=== PATIENT | female | born 1980 | race Two or more races ===

== ENCOUNTER 2021-04-24 12:20 | Emergency (ER) | payer MEDICAID, SELFPAY ==
[2021-04-24 12:37] VITALS: BP 181/95; PULSE 57; RESP 14; TEMP 36.7; O2SAT 100; BMI 18.8
--- NOTE | 2021-04-24 13:45 | ECG_ITS ---
Test Reason : ETOH Blood Pressure : / mmHG Vent. Rate : 057 BPM Atrial Rate : 057 BPM P-R Int : 110 ms QRS Dur : 076 ms QT Int : 460 ms P-R-T Axes : 061 060 063 degrees QTc Int : 447 ms Sinus bradycardia with short TN Voltage criteria for left ventricular hypertrophy Abnormal ECG When compared with ECG of 16-JUL-2009 13:07, Vent. rate has decreased BY 34 BPM T wave inversion no longer evident in Inferior leads Nonspecific T wave abnormality no longer evident in Anterior leads Referred By: Karely Valadez Electronically Signed By:PETE RAMIREZ
[2021-04-24 14:14] LABS: MANUAL DIFF FLAG NO
[2021-04-24 14:17] LABS: Basophils Percent Auto 0.2 % (0-2); Hematocrit 45.4 % (37-47); Hemoglobin 16.2 g/dl (12.0-16.0); Imm Gran Abs Auto 0.03 X10*3/uL (0.00-0.03); Imm Gran Pct Auto 0.3 % (0.0-0.4); Lymphocytes Absolute Auto 2.2 X10*3/uL (1.2-4.9); Lymphocytes Percent Auto 21.3 % (20-40); Mean Corpuscular HGB Conc 35.7 g/dl (31.0-35.0); Mean Corpuscular Hemoglobin 31.2 pg (27.0-33.0); Mean Corpuscular Volume 87.3 fL (80-98); Monocytes Absolute Auto 0.9 X10*3/uL (0.1-1.2); Monocytes Percent Auto 9.2 % (2-11); Platelet Count 349 X10*3/uL (160-400); White Blood Count 10.2 X10*3/uL (4.8-10.8)
[2021-04-24] MEDS: 0.9 % Sodium Chloride 1,000 ML 999 ML IV (14:22)
[2021-04-24 14:39] LABS: Alanine Aminotransferase 24 U/L (0-31); Albumin Level 5.1 g/dL (3.5-5.0); Alkaline Phosphatase 116 U/L (39-117); Anion Gap 15 (12-20); Aspartate Amino Transferase 20 U/L (5-31); Bilirubin Total 1.1 mg/dL (0.0-1.0); Blood Urea Nitrogen 10 mg/dL (9-16); Calcium 10.1 mg/dL (8.4-10.2); Carbon Dioxide 22 mmol/L (22-29); Chloride 105 mmol/L (96-108); Creatinine Clr Calc Pharmacy 67.1; Estimated Glomerular Filt Rate > 60; Glucose Random 121 mg/dL (60-115); Potassium 3.6 mmol/L (3.3-5.1); Sodium 138 mmol/L (135-145); Total Protein 8.2 g/dL (6.5-8.0)
[2021-04-24 14:47] LABS: Ethanol < 10 mg/dL
--- NOTE | 2021-04-24 16:01 | ED.GENADULT ---
HPI - General Adult General Chief complaint: General Medical Stated complaint: anxiety Time Seen by Provider: 04/24/21 13:32 Source: patient Mode of arrival: ambulatory Limitations: no limitations History of Present Illness HPI narrative: 40-year-old female presents for anxiety. Patient has been suicidal in the past, and feels that she will become suicidal and self-harm. Patient is hearing voices, who she calls ?field man? patient has a diagnosis of bipolar with psychosis, panic attacks, anxiety and depression. Patient has been hospitalized in the past. Patient reports she has been depressed and has not eaten for 5 days. Two days ago she felt suicidal. Patient has been dizzy, and has felt nauseous and has vomited recently. Patient is not on any psych meds, does not see a psychiatrist or counselor, does not use drugs or alcohol. Reports her mom 1 year ago. Related Data Allergies Allergy/AdvReac Type Severity Reaction Status Date / Time Penicillins [PENICILLINS] Allergy Mild RASH Unverified 05/22/20 16:55 Penicillin Allergy Unknown rash Uncoded 12/27/11 00:00 Review of Systems Review of Systems: Constitutional : No Weight loss, No Fever, No Chills, No Night Sweats,No Fatigue, No Malaise ENT/Mouth : No Hearing loss, No Ear Pain, No Nasal Congestion, NoSinus Pain, No Hoarseness, No sore throat, No Rhinorrhea, NoSwallowing Difficulty Eyes: No Eye Pain, No Swelling, No Redness, No Foreign Body, NoDischarge, No Vision Changes Cardiovascular : No Chest Pain, No SOB, No Dyspnea on Exertion, NoOrthopnea, No Edema, No Palpitations Respiratory : No Cough, No Sputum, No Wheezing, No Smoke Exposure, No Dyspnea Gastrointestinal : + Nausea, + Vomiting, No Diarrhea, NoConstipation, No abdominal Pain, No Hematochezia, No Melena Genitourinary : no irregular bleeding, No Dysuria, No UrinaryFrequency, No Hematuria, No Urinary Incontinence, No Urgency, No FlankPain, No Urinary Flow Changes, No Hesitancy Musculoskeletal : No joint pain, No Myalgias, No Joint Swelling Skin : No Skin Lesions, No rash Neuro : No Weakness, No Numbness, No Paresthesias, No Loss ofConsciousness, No Dizziness, No Headache Psych : + anxiety, + hearing voices, + fear of becoming SI, no HI Endocrine : No Polyuria, No Polydipsia, No Temperature Intolerance [facility] Social History Social History Advance Directives: Yes Advance Directives Information Provided: Yes Advance Directives on File: No Physical Exam Vital Signs: Vital Signs: Last Vital Signs Temp 98.3 F 04/24/21 17:54 Pulse 51 04/24/21 17:54 Resp 16 04/24/21 17:54 BP 192/82 H 04/24/21 17:54 Pulse Ox 99 04/24/21 17:54 Body Mass Index 18.8 Const: General: alert and awake Nutritional Appearance: malnourished and thin Orientation/consciousness: patient oriented x3 Limitations: no limitations HENMT: Head: Yes normal to inspection and Yes normocephalic Ears: hearing grossly normal bilaterally General nose exam: Normal external nose present Face and sinus: Yes normal facial exam Mouth: Normal oral and palatal mucosa present Throat: Yes posterior oropharynx normal Eyes: Sclerae: sclerae normal Pupils: Equal, round and reactive pupils present EOM: EOMs intact bilaterally Neck: Neck: Yes full ROM, Yes no lymphadenopathy, Yes no meningeal signs and Yes supple Resp: Effort & Inspection: normal respiratory effort and able to speak in complete sentences Auscultation: clear to auscultation bilaterally, no crackles, no rales, no rhonchi and no wheezes Cardio: Rate: regular rate Rhythm: regular rhythm Heart sounds: S1 normal heart sound present and S2 normal heart sound present GI: Inspection: Yes normal to inspection Palpation (GI): Soft to palpation, nontender, no guarding and not rigid Percussion: Yes normal to percussion Auscultation: normal bowel sounds Skin: General skin exam: no rashes or lesions noted Neuro: General: patient oriented x3, tone normal, moves all extremities, no meningeal signs and no focal motor deficits Cranial nerves: Yes Equal, round and reactive pupils present Psych: Appearance: disheveled Speech and movement: Clear speech present Affect: Sad affect present and Anxious affect present Attitude: cooperative Thought content: suicidality, no homicidality, Hallucination(s) present auditory and Depressive thoughts present Course Course Course Narrative: 40-year-old female presents for anxiety and auditory hallucinations, with a history of SI, concerns for her own safety. Labs show positive U tox for fentanyl marijuana. Labs otherwise unremarkable. Give fluids, Zofran. Medical Decision Making Lab Data Result diagrams: 04/24/21 14:11 04/24/21 14:11 Labs: Lab Results 04/24/21 04/24/21 04/24/21 Range/Units 14:11 14:11 14:11 WBC 10.2 (4.8-10.8) X10*3/uL RBC 5.20 (4.20-5.50) X10*6/uL Hgb 16.2 H (12.0-16.0) g/dl Hct 45.4 (37-47) % MCV 87.3 (80-98) fL MCH 31.2 (27.0-33.0) pg MCHC 35.7 H (31.0-35.0) g/dl RDW 12.0 (11.0-16.0) % Plt Count 349 (160-400) X10*3/uL MPV 9.0 L (9.4-12.3) fL Immature Gran % (Auto) 0.3 (0.0-0.4) % Neut % (Auto) 69.0 (45-73) % Lymph % (Auto) 21.3 (20-40) % Person % (Auto) 9.2 (2-11) % Eos % (Auto) 0.0 (0-4) % Baso % (Auto) 0.2 (0-2) % Lymph # (Auto) 2.2 (1.2-4.9) X10*3/uL Person # (Auto) 0.9 (0.1-1.2) X10*3/uL Eos # (Auto) 0.0 (0.0-0.4) X10*3/uL Baso # (Auto) 0.0 (0.0-0.2) X10*3/uL Abs Immat Gran (auto) 0.03 (0.00-0.03) X10*3/uL Absolute Neuts (auto) 7.0 (2.0-8.3) X10*3/uL Absolute Nucleated RBC 0.000 (0.0-0.012) X10*3/uL Nucleated RBC % (auto) 0.0 (0.0-0.2) /100WBC Sodium 138 (135-145) mmol/L Potassium 3.6 (3.3-5.1) mmol/L Chloride 105 (96-108) mmol/L Carbon Dioxide 22 (22-29) mmol/L Anion Gap 15 (12-20) BUN 10 (9-16) mg/dL Creatinine 0.82 (0.5-1.4) mg/dL Estim Creat Clear Calc 67.1 Estimated GFR > 60 Random Glucose 121 H (60-115) mg/dL Calcium 10.1 (8.4-10.2) mg/dL Total Bilirubin 1.1 H (0.0-1.0) mg/dL AST 20 (5-31) U/L ALT 24 (0-31) U/L Alkaline Phosphatase 116 (39-117) U/L Total Protein 8.2 H (6.5-8.0) g/dL Albumin 5.1 H (3.5-5.0) g/dL Urine Test (NEGATIVE) Urine Opiates Screen (Not Detect) Urine Fentanyl Screen (Not Detect) Ur Barbiturates Screen (Not Detect) Ur Phencyclidine Scrn (Not Detect) Ur Amphetamines Screen (Not Detect) U Benzodiazepines Scrn (Not Detect) Urine Cocaine Screen (Not Detect) U Marijuana (THC) Screen (Not Detect) Ethyl Alcohol < 10 mg/dL COVID-19 ([facility]) (Negative) COVID-19 Clin Com 04/24/21 04/24/21 04/24/21 Range/Units 15:59 15:59 17:01 WBC (4.8-10.8) X10*3/uL RBC (4.20-5.50) X10*6/uL Hgb (12.0-16.0) g/dl Hct (37-47) % MCV (80-98) fL MCH (27.0-33.0) pg MCHC (31.0-35.0) g/dl RDW (11.0-16.0) % Plt Count (160-400) X10*3/uL MPV (9.4-12.3) fL Immature Gran % (Auto) (0.0-0.4) % Neut % (Auto) (45-73) % Lymph % (Auto) (20-40) % Person % (Auto) (2-11) % Eos % (Auto) (0-4) % Baso % (Auto) (0-2) % Lymph # (Auto) (1.2-4.9) X10*3/uL Person # (Auto) (0.1-1.2) X10*3/uL Eos # (Auto) (0.0-0.4) X10*3/uL Baso # (Auto) (0.0-0.2) X10*3/uL Abs Immat Gran (auto) (0.00-0.03) X10*3/uL Absolute Neuts (auto) (2.0-8.3) X10*3/uL Absolute Nucleated RBC (0.0-0.012) X10*3/uL Nucleated RBC % (auto) (0.0-0.2) /100WBC Sodium (135-145) mmol/L Potassium (3.3-5.1) mmol/L Chloride (96-108) mmol/L Carbon Dioxide (22-29) mmol/L Anion Gap (12-20) BUN (9-16) mg/dL Creatinine (0.5-1.4) mg/dL Estim Creat Clear Calc Estimated GFR Random Glucose (60-115) mg/dL Calcium (8.4-10.2) mg/dL Total Bilirubin (0.0-1.0) mg/dL AST (5-31) U/L ALT (0-31) U/L Alkaline Phosphatase (39-117) U/L Total Protein (6.5-8.0) g/dL Albumin (3.5-5.0) g/dL Urine Test NEGATIVE (NEGATIVE) Urine Opiates Screen Not Detected (Not Detect) Urine Fentanyl Screen POSITIVE H (Not Detect) Ur Barbiturates Screen Not Detected (Not Detect) Ur Phencyclidine Scrn Not Detected (Not Detect) Ur Amphetamines Screen Not Detected (Not Detect) U Benzodiazepines Scrn Not Detected (Not Detect) Urine Cocaine Screen Not Detected (Not Detect) U Marijuana (THC) Screen POSITIVE H (Not Detect) Ethyl Alcohol mg/dL COVID-19 ([facility]) Negative (Negative) COVID-19 Clin Com See Note ECG Data Interpretation: EKG shows sinus bradycardia with a rate of 57. Normal axis. AR interval 110. QRS 76. QTC 447. No ST elevations or depressions, no T-wave inversions. Discharge Plan Discharge Clinical Impression: Anxiety
[2021-04-24 16:18] LABS: UPreg QC Valid YES; Urine Pregnancy NEGATIVE (NEGATIVE)
[2021-04-24 16:38] LABS: Amphetamine Screen Urine Not Detected (Not Detect); Barbiturates, Urine Not Detected (Not Detect); Benzodiazepines Screen Urine Not Detected (Not Detect); Cannabinoid Screen Urine POSITIVE (Not Detect); Cocaine Screen Urine Not Detected (Not Detect); Fentanyl, urine POSITIVE (Not Detect); Opiate Screen Urine Not Detected (Not Detect); Phencyclidine Screen Urine Not Detected (Not Detect)
--- NOTE | 2021-04-24 16:45 | PC.NURSE ---
Pt resting in the bed quietly. Fax via smart sheet sent to Crisis team/[facility] at this time.
[2021-04-24 17:01] VITALS: BP 159/85; PULSE 67; RESP 18; O2SAT 100
[2021-04-24 17:33] LABS: COVID-19 Test Negative (Negative)
[2021-04-24] MEDS: Acetaminophen 325 MG TABLET 650 MG PO (17:35)
[2021-04-24] MEDS: LORazepam 1 MG TABLET 2 MG PO (17:38)
[2021-04-24 17:54] VITALS: BP 192/82; PULSE 51; RESP 16; TEMP 36.8; O2SAT 99
--- NOTE | 2021-04-24 17:56 | PC.NURSE ---
Patient is alert and oriented x4. Patient is dressed in her own clothing, noted to be dirty with questionable hygiene. Patient reports 10/10 Depression, 10/10 Anxiety, and endorses auditory and visual hallucinations. Patient reports she hears a man's voice telling her to run out in front of traffic and kill herself. She reports she sees herself doing this as well. Patient reports she does not wish to though. In describing her depression, Liz reports it's major. She states, I don't trust myself to be alone, citing a recent event in which she woke up with self-harm cuts she didn't remember making. Patient reports She has been experiencing lack of sleep, and mind racing, for the last two years and has lost 25 lbs recently. Patient reports she had taken care of her mother for the last year of her life, before she passed two years ago. Patient reports previous medications include [place], Gabapentin, Seroquel and Ativan. Patient reports she has not had medications for two years.
--- NOTE | 2021-04-24 20:44 | PC.NURSE ---
pt was sleeping in the room, pt is now being seen by bhn in the room, visable on the monitor. skin warm and dry, pt alert and oriented.
--- NOTE | 2021-04-24 21:07 | ED.GENADULT ---
HPI - General Adult General Chief complaint: General Medical Stated complaint: anxiety Time Seen by Provider: 04/24/21 13:32 Source: patient Mode of arrival: ambulatory Limitations: no limitations Related Data Allergies Allergy/AdvReac Type Severity Reaction Status Date / Time Penicillins [PENICILLINS] Allergy Mild RASH Unverified 05/22/20 16:55 Penicillin Allergy Unknown rash Uncoded 12/27/11 00:00 PMFSH Social History Social History Advance Directives: Yes Advance Directives Information Provided: Yes Advance Directives on File: No Physical Exam Vital Signs: Vital Signs: Last Vital Signs Temp 99.1 F 04/26/21 08:28 Pulse 99 04/26/21 08:28 Resp 16 04/26/21 08:28 BP 163/108 H 04/26/21 08:28 Pulse Ox 100 04/26/21 08:28 Body Mass Index 18.8 Medical Decision Making Lab Data Result diagrams: 04/24/21 14:11 04/24/21 14:11 Labs: Lab Results 04/24/21 04/24/21 04/24/21 Range/Units 14:11 14:11 14:11 WBC 10.2 (4.8-10.8) X10*3/uL RBC 5.20 (4.20-5.50) X10*6/uL Hgb 16.2 H (12.0-16.0) g/dl Hct 45.4 (37-47) % MCV 87.3 (80-98) fL MCH 31.2 (27.0-33.0) pg MCHC 35.7 H (31.0-35.0) g/dl RDW 12.0 (11.0-16.0) % Plt Count 349 (160-400) X10*3/uL MPV 9.0 L (9.4-12.3) fL Immature Gran % (Auto) 0.3 (0.0-0.4) % Neut % (Auto) 69.0 (45-73) % Lymph % (Auto) 21.3 (20-40) % [place] % (Auto) 9.2 (2-11) % Eos % (Auto) 0.0 (0-4) % Baso % (Auto) 0.2 (0-2) % Lymph # (Auto) 2.2 (1.2-4.9) X10*3/uL [place] # (Auto) 0.9 (0.1-1.2) X10*3/uL Eos # (Auto) 0.0 (0.0-0.4) X10*3/uL Baso # (Auto) 0.0 (0.0-0.2) X10*3/uL Abs Immat Gran (auto) 0.03 (0.00-0.03) X10*3/uL Absolute Neuts (auto) 7.0 (2.0-8.3) X10*3/uL Absolute Nucleated RBC 0.000 (0.0-0.012) X10*3/uL Nucleated RBC % (auto) 0.0 (0.0-0.2) /100WBC Sodium 138 (135-145) mmol/L Potassium 3.6 (3.3-5.1) mmol/L Chloride 105 (96-108) mmol/L Carbon Dioxide 22 (22-29) mmol/L Anion Gap 15 (12-20) BUN 10 (9-16) mg/dL Creatinine 0.82 (0.5-1.4) mg/dL Estim Creat Clear Calc 67.1 Estimated GFR > 60 POC Glucose (60-115) mg/dL Random Glucose 121 H (60-115) mg/dL Calcium 10.1 (8.4-10.2) mg/dL Total Bilirubin 1.1 H (0.0-1.0) mg/dL AST 20 (5-31) U/L ALT 24 (0-31) U/L Alkaline Phosphatase 116 (39-117) U/L Total Protein 8.2 H (6.5-8.0) g/dL Albumin 5.1 H (3.5-5.0) g/dL Urine Test (NEGATIVE) Urine Opiates Screen (Not Detect) Urine Fentanyl Screen (Not Detect) Ur Barbiturates Screen (Not Detect) Ur Phencyclidine Scrn (Not Detect) Ur Amphetamines Screen (Not Detect) U Benzodiazepines Scrn (Not Detect) Urine Cocaine Screen (Not Detect) U Marijuana (THC) Screen (Not Detect) Ethyl Alcohol < 10 mg/dL COVID-19 ([facility]) (Negative) COVID-19 Clin Com 04/24/21 04/24/21 04/24/21 Range/Units 15:59 15:59 17:01 WBC (4.8-10.8) X10*3/uL RBC (4.20-5.50) X10*6/uL Hgb (12.0-16.0) g/dl Hct (37-47) % MCV (80-98) fL MCH (27.0-33.0) pg MCHC (31.0-35.0) g/dl RDW (11.0-16.0) % Plt Count (160-400) X10*3/uL MPV (9.4-12.3) fL Immature Gran % (Auto) (0.0-0.4) % Neut % (Auto) (45-73) % Lymph % (Auto) (20-40) % [place] % (Auto) (2-11) % Eos % (Auto) (0-4) % Baso % (Auto) (0-2) % Lymph # (Auto) (1.2-4.9) X10*3/uL [place] # (Auto) (0.1-1.2) X10*3/uL Eos # (Auto) (0.0-0.4) X10*3/uL Baso # (Auto) (0.0-0.2) X10*3/uL Abs Immat Gran (auto) (0.00-0.03) X10*3/uL Absolute Neuts (auto) (2.0-8.3) X10*3/uL Absolute Nucleated RBC (0.0-0.012) X10*3/uL Nucleated RBC % (auto) (0.0-0.2) /100WBC Sodium (135-145) mmol/L Potassium (3.3-5.1) mmol/L Chloride (96-108) mmol/L Carbon Dioxide (22-29) mmol/L Anion Gap (12-20) BUN (9-16) mg/dL Creatinine (0.5-1.4) mg/dL Estim Creat Clear Calc Estimated GFR POC Glucose (60-115) mg/dL Random Glucose (60-115) mg/dL Calcium (8.4-10.2) mg/dL Total Bilirubin (0.0-1.0) mg/dL AST (5-31) U/L ALT (0-31) U/L Alkaline Phosphatase (39-117) U/L Total Protein (6.5-8.0) g/dL Albumin (3.5-5.0) g/dL Urine Test NEGATIVE (NEGATIVE) Urine Opiates Screen Not Detected (Not Detect) Urine Fentanyl Screen POSITIVE H (Not Detect) Ur Barbiturates Screen Not Detected (Not Detect) Ur Phencyclidine Scrn Not Detected (Not Detect) Ur Amphetamines Screen Not Detected (Not Detect) U Benzodiazepines Scrn Not Detected (Not Detect) Urine Cocaine Screen Not Detected (Not Detect) U Marijuana (THC) Screen POSITIVE H (Not Detect) Ethyl Alcohol mg/dL COVID-19 ([facility]) Negative (Negative) COVID-19 Clin Com See Note 04/24/21 Range/Units 21:49 WBC (4.8-10.8) X10*3/uL RBC (4.20-5.50) X10*6/uL Hgb (12.0-16.0) g/dl Hct (37-47) % MCV (80-98) fL MCH (27.0-33.0) pg MCHC (31.0-35.0) g/dl RDW (11.0-16.0) % Plt Count (160-400) X10*3/uL MPV (9.4-12.3) fL Immature Gran % (Auto) (0.0-0.4) % Neut % (Auto) (45-73) % Lymph % (Auto) (20-40) % [place] % (Auto) (2-11) % Eos % (Auto) (0-4) % Baso % (Auto) (0-2) % Lymph # (Auto) (1.2-4.9) X10*3/uL [place] # (Auto) (0.1-1.2) X10*3/uL Eos # (Auto) (0.0-0.4) X10*3/uL Baso # (Auto) (0.0-0.2) X10*3/uL Abs Immat Gran (auto) (0.00-0.03) X10*3/uL Absolute Neuts (auto) (2.0-8.3) X10*3/uL Absolute Nucleated RBC (0.0-0.012) X10*3/uL Nucleated RBC % (auto) (0.0-0.2) /100WBC Sodium (135-145) mmol/L Potassium (3.3-5.1) mmol/L Chloride (96-108) mmol/L Carbon Dioxide (22-29) mmol/L Anion Gap (12-20) BUN (9-16) mg/dL Creatinine (0.5-1.4) mg/dL Estim Creat Clear Calc Estimated GFR POC Glucose 114 (60-115) mg/dL Random Glucose (60-115) mg/dL Calcium (8.4-10.2) mg/dL Total Bilirubin (0.0-1.0) mg/dL AST (5-31) U/L ALT (0-31) U/L Alkaline Phosphatase (39-117) U/L Total Protein (6.5-8.0) g/dL Albumin (3.5-5.0) g/dL Urine Test (NEGATIVE) Urine Opiates Screen (Not Detect) Urine Fentanyl Screen (Not Detect) Ur Barbiturates Screen (Not Detect) Ur Phencyclidine Scrn (Not Detect) Ur Amphetamines Screen (Not Detect) U Benzodiazepines Scrn (Not Detect) Urine Cocaine Screen (Not Detect) U Marijuana (THC) Screen (Not Detect) Ethyl Alcohol mg/dL COVID-19 ([facility]) (Negative) COVID-19 Clin Com Discharge Plan Discharge Clinical Impression: Anxiety
--- NOTE | 2021-04-24 21:43 | PC.NURSE ---
pt at this has been seen by n and a question of being a bedsearch at this time.
[2021-04-24 21:53] LABS: Glucose, Whole Blood 114 mg/dL (60-115)
--- NOTE | 2021-04-24 22:03 | PC.NURSE ---
pt oob to bathroom and back with steady gait. pt is back in bed, calm and cooperative. no s/s of distress and visable on the monitor.
[2021-04-25] MEDS: diphenhydrAMINE HCL 25 MG TABLET 50 MG PO (04:15)
[2021-04-25] MEDS: OLANZapine 10 MG TABLET PO (04:15)
[2021-04-25 04:19] VITALS: BP 169/90; PULSE 66; RESP 16; TEMP 36.7; O2SAT 100
--- NOTE | 2021-04-25 04:25 | PC.NURSE ---
Patient was observed actively self dialoguing, responding to internal stimuli, reported she is sacred to of the wiley Mcgraw who is in her room bothering her, patient is alert and oriented and was able to tell her pharmacy in [place], and her diagnosis which per patient is Bipolar unspecified with psychotic feature however she had been off her medication for over two years, provider notified/ordered Olanzapine 10 mg and Benadryl 50 mg, po, administered as ordered pending effect, BP 169/90, HR 66, will continue to monitor.
--- NOTE | 2021-04-25 07:42 | PC.NURSE ---
report taken from kimberly sarkar pt here for chelsea w hx of bipolar, pt is inpt bed search, resting in bed att, rr even/unlabored. wctm for dc needs.
[2021-04-25] MEDS: LORazepam 1 MG TABLET 2 MG PO ×2 (12:51→22:32)
--- NOTE | 2021-04-25 15:22 | PC.NURSE ---
Report received. Pt on the phone at current, calm and cooperative. No complaints. Continues to be a section 12 bed search
[2021-04-25 15:33] VITALS: BP 169/110; PULSE 70; RESP 18; TEMP 36.4; O2SAT 100
[2021-04-25 15:37] VITALS: BP 130/92
--- NOTE | 2021-04-25 20:20 | PC.NURSE ---
PT AMBULATED TO NURSING STATION WITH EVEN STEADY GAIT TO ASK FOR REMOTE, RR EVEN UNLABORED, SKIN WPD, NAD, PT OFFERS NO ACUTE COMPLAINTS.
[2021-04-26] MEDS: LORazepam 1 MG TABLET 2 MG PO ×3 (01:21→21:22)
--- NOTE | 2021-04-26 01:24 | PC.NURSE ---
Pt requesting medication due for increase anxiety. medicated per mar
[2021-04-26 06:00] VITALS: BP 145/104; PULSE 82; RESP 17; TEMP 37.8; O2SAT 99
--- NOTE | 2021-04-26 06:04 | PC.NURSE ---
pt was a bit confused at times looking for her clothes in soiled laundry cart. Ativan did have a good affect during the coarse of the evening. pt while confused was redirected.
--- NOTE | 2021-04-26 06:30 | PC.NURSE ---
Provider is aware is needs to continue monitoring.
[2021-04-26 08:28] VITALS: BP 163/108; PULSE 99; RESP 16; TEMP 37.3; O2SAT 100
--- NOTE | 2021-04-26 13:31 | PC.NURSE ---
patient given clean clothing and shower supplies
[2021-04-26 17:57] VITALS: BP 127/85; PULSE 81; RESP 17; TEMP 36.8; O2SAT 99
--- NOTE | 2021-04-26 21:24 | PC.NURSE ---
Pt ambulates with steady gait to nurses' station. Pt c/o headache and anxiety, requesting meds. Pt medicated with ativan per PRN order in NOV. This RN to request pain control for pt's c/o RIZO. Pt denies SI/HI but states I don't want to listen to him. I do hear his voice but I'm not going to do anything. Pt reports he gets me when I'm weak like over tired or something but not now. Pt assured she is safe while in ED. Pt expresses understanding. Pt remains calm and cooperative with pt care.
[2021-04-26] MEDS: Acetaminophen 325 MG TABLET 650 MG PO (21:40)
[2021-04-26] MEDS: Acetaminophen 325 MG TABLET PO (21:41)
[2021-04-27 03:38] VITALS: BP 138/89; PULSE 100; RESP 17; TEMP 37.2; O2SAT 100
[2021-04-27] MEDS: LORazepam 1 MG TABLET 2 MG PO ×3 (03:38→18:39)
[2021-04-27] MEDS: diphenhydrAMINE HCL 25 MG TABLET 50 MG PO ×2 (03:39→21:40)
[2021-04-27] MEDS: OLANZapine 10 MG TABLET PO ×2 (03:39→21:41)
[2021-04-27 03:51] LABS: Glucose, Whole Blood 114 mg/dL (60-115)
--- NOTE | 2021-04-27 06:19 | PC.NURSE ---
Patient slept well, woke up at 0330, reported AH, voices making her difficult to stay sleep, provider notified/ordered Olanzapine 10 mg po and Benadryl 50 mg po administered with PRN Ativan 2 mg po, patient compliant with meds and positive effect, patient had been sleeping 0400, behavior appropriate, med compliant, elimination intact, disposition per [facility] is section 12 inpatient bed search, will continue to monitor.
[2021-04-27 08:46] VITALS: BP 142/102; PULSE 78; RESP 16; TEMP 36.5; O2SAT 99
[2021-04-27 17:59] VITALS: BP 124/88; PULSE 94; RESP 16; TEMP 37.7; O2SAT 99
--- NOTE | 2021-04-27 21:47 | PC.NURSE ---
Patient came out of her room reporting voices are bothering her bad, pacing in hallway to cope with it, provider notified/ordered Olanzapine 10 mg PO and Benadryl 50 mg PO, administered as ordered/pending effect, patient back to her bed, will continue to monitor.
[2021-04-27 23:51] VITALS: BP 119/78; PULSE 93; RESP 15; TEMP 36.8; O2SAT 100
--- NOTE | 2021-04-28 05:13 | PC.NURSE ---
Nicole called per [facility] instruction, spoke with Edy, who notified that patient is accepted at [facility], [facility] called and confirmed, paper work is corrected. patient patient is now ready to leave at 0830 am for [facility], patient is in bed appears sleeping, no distress observed/reported, will continue to monitor.
--- NOTE | 2021-04-28 06:41 | PC.NURSE ---
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
--- NOTE | 2021-04-28 07:20 | PC.NURSE ---
patient appears in no distress at present was apparently asleep at begin of shift, patient went to bathroom, patient appears relaxed.
[2021-04-28 07:54] VITALS: BP 128/95; PULSE 88; RESP 15; TEMP 36.9; O2SAT 100
[2021-04-28] MEDS: LORazepam 1 MG TABLET 2 MG PO (09:16)
[2021-04-28 09:43] LABS: COVID-19 Test Negative (Negative)
== END 2021-04-28 10:43 ==
PROVIDERS: Physician Assistant; Physician Assistant Medical; Emergency Provider Internal Medicine
DX: F41.9 Anxiety disorder, unspecified (principal); R44.0 Auditory hallucinations; Z20.822 Contact with and (suspected) exposure to COVID-19; R11.2 Nausea with vomiting, unspecified; F31.9 Bipolar disorder, unspecified; F06.8 Other specified mental disorders due to known physiological condition; R45.851 Suicidal ideations
CPT/HCPCS: 36415; 80053; 80307; 81025; 82077; 82947; 85025; 87635; 93005; 99285; Q0163